=== PATIENT | female | born 1955 | race Hispanic/Latino ===

== ENCOUNTER 2017-08-21 01:07 | Inpatient (IN) | payer SELFPAY ==
[~2017-08-21] VITALS: Ht 147.3 cm; Wt 60.3 kg
[2017-08-21] MEDS ORDERED: ONDANSETRON HCL 4 MG/2 ML VIAL ONE (01:49)
[2017-08-21] MEDS ORDERED: SODIUM CHLORIDE 0.9% 1000ML 1,000 ML IV ONE ×2 (01:49→02:49)
[2017-08-21 02:19] LABS: BASOPHILS % (AUTO) 0.2 % (0.0-5.0); EOSINOPHILS % (AUTO) 0.1 % (0.0-8.0); HEMATOCRIT 46.4 % (36-48); LYMPHOCYTES % (AUTO) 9.8 % (21.0-51.0); MEAN CORPUSCULAR HEMOGLOBIN 28.9 pg (27.0-33.0); MEAN CORPUSCULAR VOLUME 87.5 fL (79-99); MONOCYTES % (AUTO) 5.1 % (3.0-13.0); NEUTROPHILS % (AUTO) 84.8 % (40.0-77.0); PLATELET COUNT (AUTO) 395 K/uL (130-400); RED CELL DISTRIBUTION WIDTH 12.7 % (11.0-15.5); WHITE BLOOD COUNT (AUTO) 21.4 K/uL (4.8-10.8)
[2017-08-21 02:20] LABS: APPEARANCE,URINE Clear (CLEAR); BILIRUBIN,URINE Negative (NEGATIVE); COLOR,URINE Dark Yellow (YELLOW); GLUCOSE, URINE (UA) Negative (NEGATIVE); KETONES,URINE Trace mg/dL (NEGATIVE); LEUKOCYTE ESTERASE ,URINE Negative (NEGATIVE); NITRATE,URINE Negative (NEGATIVE); OCCULT BLOOD,URINE Small (NEGATIVE); PROTEIN,URINE POS 2+ (NEGATIVE)
[2017-08-21 02:27] LABS: CREATININE 0.7 mg/dL (0.5-1.5); POTASSIUM 3.6 mmol/L (3.5-5.1)
[2017-08-21 02:32] LABS: ALBUMIN 3.1 g/dL (3.5-5.0); BILIRUBIN,TOTAL 0.4 mg/dL (0.2-1.0); TOTAL PROTEIN, SERUM 7.3 g/dL (6.0-8.3)
[2017-08-21 02:34] LABS: BACTERIA,URINE Rare /HPF (None Seen); MUCUS,URINE Many LPF (None Seen); SQUAMOUS EPITHELIAL CELL,UR Moderate /HPF (0-2)
[2017-08-21] MEDS ORDERED: ZOSYN 3.375GM+NS 50ML 50 ML IV ONE (02:49)
[2017-08-21] MEDS ORDERED: IOPAMIDOL-370 75 ML VIAL IV ONE (03:14)
[2017-08-21] MEDS ORDERED: ONDANSETRON HCL 4 MG/2 ML VIAL IVP PRN (06:30)
[2017-08-21] MEDS ORDERED: POTASSIUM CHLORIDE 20 MEQ ERTAB PO PRN (06:30)
[2017-08-21] MEDS ORDERED: LIDOCAINE HCL-MPF 1% 2ML VIAL IJ PRN (06:30)
[2017-08-21] MEDS ORDERED: POTASSIUM CHLORIDE 20MEQ/100ML 100 ML IV PRN (06:30)
[2017-08-21] MEDS ORDERED: POTASSIUM CHLORIDE 10% ELIXIR 20 MEQ/15 ML UDCUP PO PRN (06:30)
[2017-08-21] MEDS: LEVOFLOXACIN 500 MG/D5W 100 ML 100 ML IV SCH (06:30)
[2017-08-21] MEDS ORDERED: LEVOFLOXACIN 500 MG/D5W 100 ML 100 ML ONE (06:55)
[2017-08-21] MEDS ORDERED: METRONIDAZOLE 500 MG TABLET ONE (06:55)
[2017-08-21] MEDS: METRONIDAZOLE 500 MG TABLET PO SCH ×2 (09:00→17:07)
[2017-08-21] MEDS: ENOXAPARIN SODIUM 30 MG/0.3 ML SQ SCH (09:00)
[2017-08-21] MEDS ORDERED: MAGNESIUM 2GM PREMIX 50ML 50 ML IV PRN (09:30)
[2017-08-21] MEDS ORDERED: ENOXAPARIN SODIUM 30 MG/0.3 ML SQ ONE (09:47)
[2017-08-21 14:30] VITALS: BP 132/66
[2017-08-21] MEDS ORDERED: LISI10TA7 PO (14:46)
[2017-08-21 16:00] VITALS: BP 134/68
[2017-08-21 20:00] VITALS: BP 160/77
[2017-08-22] VITALS: BP 140/54
[2017-08-22] MEDS: METRONIDAZOLE 500 MG TABLET PO SCH ×2 (01:22→08:42)
[2017-08-22 04:00] VITALS: BP 126/80
[2017-08-22 04:52] LABS: HEMATOCRIT 38.8 % (36-48); MEAN CORPUSCULAR HEMOGLOBIN 29.9 pg (27.0-33.0); MEAN CORPUSCULAR HGB CONC 33.7 g/dL (32.0-36.0); MEAN CORPUSCULAR VOLUME 88.8 fL (79-99); PLATELET COUNT (AUTO) 329 K/uL (130-400); RED BLOOD CELL COUNT(AUTO) 4.37 MIL/uL (4.00-5.50); RED CELL DISTRIBUTION WIDTH 12.7 % (11.0-15.5); WHITE BLOOD COUNT (AUTO) 8.7 K/uL (4.8-10.8)
[2017-08-22 05:02] LABS: CREATININE 0.6 mg/dL (0.5-1.5); POTASSIUM 3.6 mmol/L (3.5-5.1)
[2017-08-22] MEDS: LEVOFLOXACIN 500 MG/D5W 100 ML 100 ML IV SCH (05:41)
[2017-08-22 08:00] VITALS: BP 153/76
[2017-08-22] MEDS: ENOXAPARIN SODIUM 30 MG/0.3 ML SQ SCH (08:42)
[2017-08-22 12:00] VITALS: BP 138/85
[2017-08-22 16:00] VITALS: BP 171/77
[2017-08-22] MEDS ORDERED: ACETAMINOPHEN 325 MG TAB ONE (16:13)
== END 2017-08-22 18:36 | disposition home or self-care (01) | DRG 392 ==
LOC: EDH 01:07 → EDHIP 01:08 → 3AH 14:25
PROVIDERS: ADMIT Internal Medicine Infectious Disease; ATTEND Internal Medicine Infectious Disease
DX: K52.9 Noninfective gastroenteritis and colitis, unspecified (principal); I10 Essential (primary) hypertension; D72.829 Elevated white blood cell count, unspecified; Z88.8 Allergy status to other drugs, medicaments and biological substances
CPT/HCPCS: 36415; 74177; 76856; 80048; 80053; 81001; 83605; 83690; 83735; 84484; 85025; 85027; 87040; 87046; 87205; 87324; 99291; J1650; J1956; J2405; J2543; J7030; Q9967

== ENCOUNTER 2017-11-24 23:13 | Inpatient (IN) | payer SELFPAY ==
[~2017-11-24] VITALS: Ht 147.3 cm; Wt 61.2 kg
[~2017-11-24 23:13] MED LIST: ATOR10TA69 PO
[2017-11-24] MEDS ORDERED: ONDANSETRON HCL 4 MG/2 ML VIAL ONE (23:53)
[2017-11-24] MEDS ORDERED: MORPHINE SULFATE 4 MG/1ML SYG ONE (23:53)
[2017-11-25 00:03] LABS: APPEARANCE,URINE Clear (CLEAR); BILIRUBIN,URINE Negative (NEGATIVE); COLOR,URINE Yellow (YELLOW); GLUCOSE, URINE (UA) Negative (NEGATIVE); KETONES,URINE 40 mg/dL (NEGATIVE); LEUKOCYTE ESTERASE ,URINE Negative (NEGATIVE); NITRATE,URINE Negative (NEGATIVE); OCCULT BLOOD,URINE Small (NEGATIVE); PROTEIN,URINE POS 2+ (NEGATIVE)
[2017-11-25 00:16] LABS: BACTERIA,URINE None Seen /HPF (None Seen); MUCUS,URINE Rare LPF (None Seen); RBC,URINE 0-1 /HPF (0-1); SQUAMOUS EPITHELIAL CELL,UR Rare /HPF (0-2); WBC,URINE None Seen /HPF (0-1)
[2017-11-25 00:21] LABS: BASOPHILS % (AUTO) 0.2 % (0.0-5.0); EOSINOPHILS % (AUTO) 0.1 % (0.0-8.0); HEMATOCRIT 48.4 % (36-48); LYMPHOCYTES % (AUTO) 9.7 % (21.0-51.0); MEAN CORPUSCULAR HEMOGLOBIN 29.1 pg (27.0-33.0); MEAN CORPUSCULAR HGB CONC 32.8 g/dL (32.0-36.0); MEAN CORPUSCULAR VOLUME 88.6 fL (79-99); MONOCYTES % (AUTO) 4.1 % (3.0-13.0); NEUTROPHILS % (AUTO) 85.9 % (40.0-77.0); PLATELET COUNT (AUTO) 323 K/uL (130-400); RED BLOOD CELL COUNT(AUTO) 5.47 MIL/uL (4.00-5.50); RED CELL DISTRIBUTION WIDTH 13.2 % (11.0-15.5)
[2017-11-25 00:42] LABS: ALBUMIN 3.4 g/dL (3.5-5.0); BILIRUBIN,TOTAL 0.3 mg/dL (0.2-1.0); CREATININE 0.6 mg/dL (0.5-1.5); TOTAL PROTEIN, SERUM 7.4 g/dL (6.0-8.3)
[2017-11-25] MEDS ORDERED: IOHEXOL-350 75 ML VIAL IV ONE (01:09)
[2017-11-25 01:16] LABS: POTASSIUM 3.5 mmol/L (3.5-5.1)
[2017-11-25] MEDS ORDERED: ZOSYN 3.375GM+NS 50ML 50 ML IV ONE ×2 (01:27→11:15)
[2017-11-25] MEDS ORDERED: SODIUM CHLORIDE 0.9% 50 ML IV ONE (01:28)
[2017-11-25] MEDS ORDERED: SODIUM CHLORIDE 0.9% 1000ML 1,000 ML IV ONE (04:10)
[2017-11-25 05:34] LABS: BASOPHILS % (AUTO) 0.3 % (0.0-5.0); HEMATOCRIT 40.7 % (36-48); LYMPHOCYTES % (AUTO) 7.7 % (21.0-51.0); MEAN CORPUSCULAR HEMOGLOBIN 29.8 pg (27.0-33.0); MEAN CORPUSCULAR HGB CONC 33.6 g/dL (32.0-36.0); MEAN CORPUSCULAR VOLUME 88.5 fL (79-99); MONOCYTES % (AUTO) 1.8 % (3.0-13.0); NEUTROPHILS % (AUTO) 90.2 % (40.0-77.0); PLATELET COUNT (AUTO) 326 K/uL (130-400); RED CELL DISTRIBUTION WIDTH 13.3 % (11.0-15.5); WHITE BLOOD COUNT (AUTO) 16.1 K/uL (4.8-10.8)
[2017-11-25 05:44] LABS: CREATININE 0.7 mg/dL (0.5-1.5); POTASSIUM 5.2 mmol/L (3.5-5.1)
[2017-11-25 05:50] LABS: ALBUMIN 2.8 g/dL (3.5-5.0); BILIRUBIN,TOTAL 0.5 mg/dL (0.2-1.0); TOTAL PROTEIN, SERUM 6.7 g/dL (6.0-8.3)
[2017-11-25 08:03] VITALS: BP 130/59
[2017-11-25] MEDS: PHARMACY COMMUNICATION MISC SCH ×2 (11:00→14:00)
[2017-11-25 11:01] VITALS: BP 124/50
[2017-11-25] MEDS: SODIUM CHLORIDE 0.9% 1000ML 1,000 ML IV SCH (11:06)
[2017-11-25] MEDS ORDERED: ACETAMINOPHEN 325 MG TAB PO PRN (11:15)
[2017-11-25] MEDS ORDERED: ONDANSETRON HCL 4 MG/2 ML VIAL IVP PRN (11:15)
[2017-11-25] MEDS ORDERED: MORPHINE SULFATE 4 MG/1ML SYG IVP PRN (11:15)
[2017-11-25] MEDS ORDERED: PNEUMOCOCCAL VACCINE POLYVALENT 0.5 ML/VIAL [PPV] IM ONE (12:00)
[2017-11-25 16:00] VITALS: BP 133/72
[2017-11-25 20:00] VITALS: BP 156/77
[2017-11-25] MEDS: ZOSYN 3.375GM+NS 50ML 50 ML IV SCH (20:36)
[2017-11-26] VITALS (7 sets, daily range): BP systolic 136–170; BP diastolic 53–85
[2017-11-26] MEDS: ZOSYN 3.375GM+NS 50ML 50 ML IV SCH ×3 (04:28→20:52)
[2017-11-26] MEDS: SODIUM CHLORIDE 0.9% 1000ML 1,000 ML IV SCH ×3 (08:21→12:17)
[2017-11-27 03:26] VITALS: BP 145/60
[2017-11-27 05:20] LABS: HEMATOCRIT 37.6 % (36-48); MEAN CORPUSCULAR HEMOGLOBIN 30.1 pg (27.0-33.0); MEAN CORPUSCULAR HGB CONC 33.9 g/dL (32.0-36.0); MEAN CORPUSCULAR VOLUME 88.6 fL (79-99); PLATELET COUNT (AUTO) 267 K/uL (130-400); RED BLOOD CELL COUNT(AUTO) 4.24 MIL/uL (4.00-5.50); RED CELL DISTRIBUTION WIDTH 12.7 % (11.0-15.5); WHITE BLOOD COUNT (AUTO) 7.2 K/uL (4.8-10.8)
[2017-11-27] MEDS: ZOSYN 3.375GM+NS 50ML 50 ML IV SCH ×2 (05:20→12:00)
[2017-11-27 05:27] LABS: CREATININE 0.6 mg/dL (0.5-1.5); POTASSIUM 3.4 mmol/L (3.5-5.1)
[2017-11-27 08:19] VITALS: BP 173/77
[2017-11-27] MEDS ORDERED: ENOXAPARIN SODIUM 40 MG/0.4 ML SYRINGE SQ SCH (09:00)
[2017-11-27] MEDS ORDERED: LEVO500T2 PO (12:16)
[2017-11-27 12:17] VITALS: BP 159/57
[2017-11-27] MEDS ORDERED: POTASSIUM CHLORIDE 20 MEQ ERTAB PO SCH (12:30)
== END 2017-11-27 15:53 | disposition home or self-care (01) | DRG 872 ==
LOC: EDH 23:13 → EDHIP 23:14 → 4BH 11-25 07:13
PROVIDERS: ADMIT Hospitalist; ATTEND Hospitalist
PROC: 3E0234Z Introduction of Serum, Toxoid and Vaccine into Muscle, Percutaneous Approach (ICD-10-PCS; principal; 2017-11-24)
DX: A41.9 Sepsis, unspecified organism (principal); K52.9 Noninfective gastroenteritis and colitis, unspecified; I10 Essential (primary) hypertension; E78.5 Hyperlipidemia, unspecified; E66.9 Obesity, unspecified; K76.0 Fatty (change of) liver, not elsewhere classified; Z68.28 Body mass index [BMI] 28.0-28.9, adult; Z88.8 Allergy status to other drugs, medicaments and biological substances; Z88.5 Allergy status to narcotic agent; Z91.010 Allergy to peanuts; Z82.5 Family history of asthma and other chronic lower respiratory diseases; Z83.3 Family history of diabetes mellitus; Z82.49 Family history of ischemic heart disease and other diseases of the circulatory system; Z23 Encounter for immunization
CPT/HCPCS: 36415; 74177; 80048; 80053; 81001; 82550; 83605; 83690; 84484; 85025; 85027; 87040; 87507; 90732; 93005; G0009; J1650; J2270; J2405; J2543; J7030; Q9967

== ENCOUNTER 2020-07-03 18:54 | Emergency (ER) | payer SELFPAY ==
[~2020-07-03 18:54] MED LIST changes: +LEVO500T2 PO
[2020-07-03] MEDS ORDERED: KETOROLAC TROMETHAMINE 30MG/ML ONE (19:38)
[2020-07-03] MEDS ORDERED: LIDOCAINE 5% TOPICAL PATCH TP ONE (19:38)
[2020-07-03] MEDS ORDERED: ORPHENADRINE CITRATE 30 MG/ML ML ONE (19:38)
[2020-07-03 19:59] LABS: APPEARANCE,URINE Clear (CLEAR); BILIRUBIN,URINE Negative (NEGATIVE); COLOR,URINE Yellow (YELLOW); GLUCOSE, URINE (UA) Negative (NEGATIVE); KETONES,URINE Negative (NEGATIVE); LEUKOCYTE ESTERASE ,URINE Trace (NEGATIVE); NITRATE,URINE Negative (NEGATIVE); OCCULT BLOOD,URINE Negative (NEGATIVE); PH,URINE 7.5 (5.0-8.0); PROTEIN,URINE Negative (NEGATIVE)
[2020-07-03 20:16] LABS: BACTERIA,URINE Rare /HPF (None Seen); RBC,URINE 0-1 /HPF (0-1); SQUAMOUS EPITHELIAL CELL,UR Few /HPF (0-2)
== END 2020-07-03 21:30 | disposition home or self-care (01) ==
LOC: EDH 18:54
DX: M62.830 Muscle spasm of back (principal); M54.5 Low back pain; I10 Essential (primary) hypertension; E78.5 Hyperlipidemia, unspecified; Z88.0 Allergy status to penicillin; Z87.891 Personal history of nicotine dependence; Z88.8 Allergy status to other drugs, medicaments and biological substances
CPT/HCPCS: 72131; 81001; 96374; 96375; 99284; J1885; J2360

== ENCOUNTER 2021-08-28 10:27 | Emergency (ER) | payer MEDICARE, OTHER ==
[~2021-08-28] VITALS: Ht 149.9 cm; Wt 62.6 kg
[2021-08-28 10:53] LABS: BASOPHILS % (AUTO) 0.3 % (0.0-5.0); LYMPHOCYTES % (AUTO) 7.2 % (21.0-51.0); MEAN CORPUSCULAR HEMOGLOBIN 29.2 pg (27.0-33.0); MEAN CORPUSCULAR HGB CONC 32.9 g/dL (32.0-36.0); MEAN CORPUSCULAR VOLUME 88.9 fL (79-99); MONOCYTES % (AUTO) 3.9 % (3.0-13.0); NEUTROPHILS % (AUTO) 87.9 % (40.0-77.0); PLATELET COUNT (AUTO) 411 K/uL (130-400); RED BLOOD CELL COUNT(AUTO) 5.06 MIL/uL (4.00-5.50); RED CELL DISTRIBUTION WIDTH 11.9 % (11.0-15.5); WHITE BLOOD COUNT (AUTO) 22.3 K/uL (4.8-10.8)
[2021-08-28 11:02] LABS: CREATININE 0.6 mg/dL (0.5-1.5); POTASSIUM 4.2 mmol/L (3.5-5.1)
[2021-08-28 11:08] LABS: ALBUMIN 3.6 g/dL (3.5-5.0); TOTAL PROTEIN, SERUM 8.1 g/dL (6.0-8.3)
[2021-08-28 11:09] LABS: APPEARANCE,URINE CLOUDY (CLEAR); BILIRUBIN,URINE SMALL (NEGATIVE); COLOR,URINE YELLOW (YELLOW); GLUCOSE, URINE (UA) NEGATIVE (NEGATIVE); KETONES,URINE 5 mg/dL (NEGATIVE); LEUKOCYTE ESTERASE ,URINE SMALL (NEGATIVE); NITRATE,URINE NEGATIVE (NEGATIVE); OCCULT BLOOD,URINE MODERATE (NEGATIVE); PROTEIN,URINE 100 mg/dL (NEGATIVE)
[2021-08-28 11:26] LABS: BACTERIA,URINE Rare /HPF (None Seen); MUCUS,URINE Few LPF (None Seen); SQUAMOUS EPITHELIAL CELL,UR Rare /HPF (0-2); WBC,URINE 51-100 /HPF (0-1)
[2021-08-28] MEDS ORDERED: 0.9%NACL 1000ML 1,000 ML IV ONE ×2 (14:00→16:04)
[2021-08-28] MEDS ORDERED: CEFTRIAXONE 2GM VIAL IVP ONE (14:00)
[2021-08-28] MEDS ORDERED: IOHEXOL 350 MG/ML 100ML INFUS..BTL IV ONE (14:49)
[2021-08-28] MEDS ORDERED: CEFTRIAXONE 1G VIAL ONE (16:04)
[2021-08-28] MEDS ORDERED: CEPH500B PO (16:47)
[2021-08-28 17:02] VITALS: BP 157/77
== END 2021-08-28 17:01 | disposition home or self-care (01) ==
LOC: EDH 10:27
DX: N39.0 Urinary tract infection, site not specified (principal); D26.9 Other benign neoplasm of uterus, unspecified; E78.00 Pure hypercholesterolemia, unspecified; E86.0 Dehydration; I10 Essential (primary) hypertension; Z87.440 Personal history of urinary (tract) infections; Z88.5 Allergy status to narcotic agent
CPT/HCPCS: 99285; 80053; 83690; 85025; 87077; 87088; 87186; 81001; 36415; 74177; 96374; 96361; J7030; J0696; Q9967

== ENCOUNTER 2022-04-05 10:48 | Inpatient (IN) | payer MEDICARE, OTHER ==
[~2022-04-05] VITALS: Ht 147.3 cm; Wt 57.4 kg
[2022-04-05] VITALS (37 sets, daily range): BP systolic 111–159; BP diastolic 46–89
[~2022-04-05 10:48] MED LIST changes: +CEPH500B PO
[2022-04-05] MEDS ORDERED: PROPOFOL 1000 MG/100 ML 100 ML IV SCH (11:00)
[2022-04-05] MEDS ORDERED: SUCCINYLCHOLINE 200MG/10ML SYR IVP SCH (11:00)
[2022-04-05] MEDS ORDERED: DiphenhydrAMINE HCL 50 MG/ML VIAL IV ONE (11:00)
[2022-04-05] MEDS ORDERED: ETOMIDATE 20MG VIAL IVP SCH (11:00)
[2022-04-05] MEDS ORDERED: SOLU-MEDROL 125MG VIAL IVP ONE (11:00)
[2022-04-05 11:08] LABS: BASOPHILS % (AUTO) 0.4 % (0.0-5.0); EOSINOPHILS % (AUTO) 1.2 % (0.0-8.0); HEMATOCRIT 45.7 % (36-48); LYMPHOCYTES % (AUTO) 35.8 % (21.0-51.0); MEAN CORPUSCULAR HEMOGLOBIN 28.9 pg (27.0-33.0); MEAN CORPUSCULAR HGB CONC 32.6 g/dL (32.0-36.0); MEAN CORPUSCULAR VOLUME 88.7 fL (79-99); MONOCYTES % (AUTO) 5.6 % (3.0-13.0); PLATELET COUNT (AUTO) 296 K/uL (130-400); RED BLOOD CELL COUNT(AUTO) 5.15 MIL/uL (4.00-5.50)
[2022-04-05 11:17] LABS: CREATININE 0.6 mg/dL (0.5-1.5)
[2022-04-05 11:21] LABS: ALBUMIN 3.7 g/dL (3.5-5.0); TOTAL PROTEIN, SERUM 8.5 g/dL (6.0-8.3)
[2022-04-05] MEDS ORDERED: LORAZEPAM 2 MG/ML 1 ML VIAL ONE (11:49)
[2022-04-05] MEDS ORDERED: POTASSIUM CHLORIDE 20MEQ/100ML 100 ML IV ONE (11:56)
[2022-04-05] MEDS ORDERED: LORAZEPAM 2 MG/ML 1 ML VIAL IVP ONE (12:00)
[2022-04-05] MEDS ORDERED: POTASSIUM CHLORIDE 20 MEQ/100 ML BAG IV SCH (12:00)
[2022-04-05 12:02] LABS: APPEARANCE,URINE CLEAR (CLEAR); BILIRUBIN,URINE NEGATIVE (NEGATIVE); COLOR,URINE LIGHT-YELLOW (YELLOW); GLUCOSE, URINE (UA) NEGATIVE (NEGATIVE); KETONES,URINE NEGATIVE (NEGATIVE); LEUKOCYTE ESTERASE ,URINE NEGATIVE Leu/uL (NEGATIVE); NITRATE,URINE NEGATIVE (NEGATIVE); PROTEIN,URINE 200 mg/dL (NEGATIVE); UROBILINOGEN,URINE 0.2 mg/dL (0.2-1.0)
[2022-04-05 12:07] LABS: BACTERIA,URINE RARE /HPF (None Seen); MUCUS,URINE RARE LPF (None Seen); OTHER CASTS, URINE 3 /LPF (None Seen); SQUAMOUS EPITHELIAL CELL,UR RARE /HPF (0-2)
[2022-04-05] MEDS ORDERED: ONDANSETRON 4MG INJ IVP PRN ×2 (13:00→15:00)
[2022-04-05] MEDS ORDERED: ACETAMINOPHEN 325 MG SUPPOSITORY RC PRN (13:00)
[2022-04-05] MEDS ORDERED: FENTANYL 2500MCG+NS 250ML IV.SOLN IV SCH (13:00)
[2022-04-05] MEDS ORDERED: LIDOCAINE HCL-MPF 1% 2ML VIAL IV PRN (13:00)
[2022-04-05] MEDS ORDERED: POTASSIUM CHLORIDE 20MEQ/100ML 100 ML IV PRN (13:00)
[2022-04-05] MEDS ORDERED: FENTANYL 2500MCG+NS 250ML 250 ML IV SCH (13:30)
[2022-04-05] MEDS: LACTATED RINGERS 1000ML 1,000 ML IV SCH (14:52)
[2022-04-05] MEDS: CHLORHEXIDINE GLUCONATE 473 ML MOUTHWASH MM SCH ×2 (14:52→20:12)
[2022-04-05] MEDS: DiphenhydrAMINE HCL 50 MG/ML VIAL IV SCH ×2 (14:59→23:51)
[2022-04-05] MEDS: SOLU-MEDROL 40MG VIAL IVP SCH ×2 (14:59→23:51)
[2022-04-05] MEDS ORDERED: HYDROCODONE/ACETAMINOPHEN 5/325 MG TAB PO PRN ×2 (15:00)
[2022-04-05] MEDS ORDERED: DOCUSATE SODIUM 100 MG CAP PO PRN (15:00)
[2022-04-05] MEDS ORDERED: ACETAMINOPHEN 325 MG TAB PO PRN (15:00)
[2022-04-05] MEDS ORDERED: LABETALOL 20MG SYG IV PRN (15:00)
[2022-04-05] MEDS ORDERED: ALBUTEROL 0.083% 2.5 MG/3 ML INH IH PRN (15:00)
[2022-04-05] MEDS ORDERED: TEMAZEPAM 15 MG CAPSULE PO PRN (15:00)
[2022-04-05] MEDS ORDERED: HYDRALAZINE 20MG/ML VIAL IV PRN (15:00)
[2022-04-05] MEDS ORDERED: LACTULOSE 20 GM/30 ML UDCUP PO PRN (15:00)
[2022-04-05 15:10] LABS: ABG BASE EXCESS -3.1 mmol/L (-2.0-3.0); ABG HCO3 21.6 mmol/L (21.0-28.0); ABG OXYGEN SATURATION 99.1 % (95.0-99.0); ABG PCO2 38 mmHg (32-45)
[2022-04-05] MEDS: FAMOTIDINE 20MG VIAL IV SCH (20:11)
[2022-04-06] VITALS (59 sets, daily range): BP systolic 118–171; BP diastolic 44–138
[2022-04-06] MEDS: LACTATED RINGERS 1000ML 1,000 ML IV SCH ×2 (00:30→10:41)
[2022-04-06] MEDS: CHLORHEXIDINE GLUCONATE 473 ML MOUTHWASH MM SCH ×4 (03:18→20:26)
[2022-04-06 04:01] LABS: BASOPHILS % (AUTO) 0.1 % (0.0-5.0); HEMATOCRIT 41.6 % (36-48); LYMPHOCYTES % (AUTO) 10.2 % (21.0-51.0); MEAN CORPUSCULAR HEMOGLOBIN 29.3 pg (27.0-33.0); MEAN CORPUSCULAR HGB CONC 32.9 g/dL (32.0-36.0); MEAN CORPUSCULAR VOLUME 88.9 fL (79-99); MONOCYTES % (AUTO) 1.5 % (3.0-13.0); NEUTROPHILS % (AUTO) 87.8 % (40.0-77.0); PLATELET COUNT (AUTO) 274 K/uL (130-400); RED BLOOD CELL COUNT(AUTO) 4.68 MIL/uL (4.00-5.50); RED CELL DISTRIBUTION WIDTH 12.2 % (11.0-15.5); WHITE BLOOD COUNT (AUTO) 12.4 K/uL (4.8-10.8)
[2022-04-06 04:29] LABS: ALBUMIN 3.1 g/dL (3.5-5.0); CREATININE 0.6 mg/dL (0.5-1.5); MAGNESIUM 1.7 mg/dL (1.80-2.40); POTASSIUM 4.1 mmol/L (3.5-5.1); THYROID STIMULATING HORMONE 0.46 uIU/mL (0.36-3.74); TOTAL PROTEIN, SERUM 7.5 g/dL (6.0-8.3)
[2022-04-06 05:23] LABS: ERYTHROCYTE SEDIMENTATION RATE 17 MM/HR (0-30)
[2022-04-06] MEDS: DiphenhydrAMINE HCL 50 MG/ML VIAL IV SCH ×3 (06:10→22:58)
[2022-04-06] MEDS: SOLU-MEDROL 40MG VIAL IVP SCH ×3 (06:10→22:58)
[2022-04-06] MEDS ORDERED: MAGNESIUM 2GM PREMIX 50ML 50 ML IV SCH (06:30)
[2022-04-06] MEDS: FAMOTIDINE 20MG VIAL IV SCH ×2 (09:43→20:25)
[2022-04-06] MEDS: CEFTRIAXONE 2GM VIAL IVP SCH ×2 (10:41→20:25)
[2022-04-06 12:16] LABS: ABG BASE EXCESS 2.3 mmol/L (-2.0-3.0); ABG HCO3 28.5 mmol/L (21.0-28.0); ABG OXYGEN SATURATION 95.6 % (95.0-99.0); ABG PCO2 51 mmHg (32-45)
[2022-04-06] MEDS ORDERED: PHARMACY COMMUNICATION MISC SCH (12:30)
[2022-04-06] MEDS ORDERED: RACEPINEPHRINE HCL 2.25% 0.5 ML NEB SOLN NEB SCH (12:30)
[2022-04-06] MEDS ORDERED: [UNRECOGNIZED DRUG - OTHER] NEB SCH ×2 (13:00)
[2022-04-06] MEDS ORDERED: EPINEPHRINE NEB SCH ×2 (13:00)
[2022-04-06] MEDS ORDERED: EPINEPHRINE PF 1MG (1:1,000) 1 MG/ML AMP IH SCH (13:00)
[2022-04-06 14:43] LABS: CHOLESTEROL 230 mg/dL (<200); HDL CHOLESTEROL 64 mg/dL (35-85); LDL DIRECT 154 mg/dL (0-99); TRIGLYCERIDES 62 mg/dL (30-200)
[2022-04-07] VITALS (14 sets, daily range): BP systolic 115–142; BP diastolic 49–75
[2022-04-07 04:11] LABS: HEMATOCRIT 37.9 % (36-48); MEAN CORPUSCULAR HEMOGLOBIN 29.3 pg (27.0-33.0); MEAN CORPUSCULAR HGB CONC 32.2 g/dL (32.0-36.0); MEAN CORPUSCULAR VOLUME 90.9 fL (79-99); RED BLOOD CELL COUNT(AUTO) 4.17 MIL/uL (4.00-5.50); RED CELL DISTRIBUTION WIDTH 12.4 % (11.0-15.5); WHITE BLOOD COUNT (AUTO) 16.8 K/uL (4.8-10.8)
[2022-04-07 04:27] LABS: ALBUMIN 2.8 g/dL (3.5-5.0); CREATININE 0.5 mg/dL (0.5-1.5); MAGNESIUM 2.3 mg/dL (1.80-2.40); POTASSIUM 3.9 mmol/L (3.5-5.1)
[2022-04-07] MEDS: DiphenhydrAMINE HCL 50 MG/ML VIAL IV SCH ×3 (06:26→23:00)
[2022-04-07] MEDS: SOLU-MEDROL 40MG VIAL IVP SCH ×3 (06:26→20:57)
[2022-04-07] MEDS: CHLORHEXIDINE GLUCONATE 473 ML MOUTHWASH MM SCH ×3 (08:30→21:38)
[2022-04-07] MEDS: FAMOTIDINE 20MG VIAL IV SCH ×2 (08:30→20:58)
[2022-04-07] MEDS: CEFTRIAXONE 2GM VIAL IVP SCH ×2 (08:30→20:58)
[2022-04-08 00:09] VITALS: BP 151/68
[2022-04-08 04:00] VITALS: BP 151/78
[2022-04-08 05:14] LABS: HEMATOCRIT 40.4 % (36-48); MEAN CORPUSCULAR HEMOGLOBIN 28.9 pg (27.0-33.0); MEAN CORPUSCULAR HGB CONC 32.7 g/dL (32.0-36.0); MEAN CORPUSCULAR VOLUME 88.6 fL (79-99); RED BLOOD CELL COUNT(AUTO) 4.56 MIL/uL (4.00-5.50); RED CELL DISTRIBUTION WIDTH 12.4 % (11.0-15.5)
[2022-04-08 05:27] LABS: ALBUMIN 3.2 g/dL (3.5-5.0); CREATININE 0.7 mg/dL (0.5-1.5); MAGNESIUM 2.4 mg/dL (1.80-2.40); POTASSIUM 3.4 mmol/L (3.5-5.1); TOTAL PROTEIN, SERUM 7.5 g/dL (6.0-8.3)
[2022-04-08] MEDS: CHLORHEXIDINE GLUCONATE 473 ML MOUTHWASH MM SCH ×2 (05:30→09:20)
[2022-04-08] MEDS: DiphenhydrAMINE HCL 50 MG/ML VIAL IV SCH (07:00)
[2022-04-08 08:00] VITALS: BP 142/86
[2022-04-08] MEDS ORDERED: EPIN0.3P3 IJ (08:21)
[2022-04-08] MEDS ORDERED: LORA10TA7 PO (08:22)
[2022-04-08] MEDS: FAMOTIDINE 20MG VIAL IV SCH (09:16)
[2022-04-08] MEDS: CEFTRIAXONE 2GM VIAL IVP SCH (09:16)
[2022-04-08] MEDS: SOLU-MEDROL 40MG VIAL IVP SCH (09:16)
== END 2022-04-08 12:00 | disposition home or self-care (01) | DRG 208 ==
LOC: EDH 10:48 → EDHIP 12:47 → 2BH 13:43 → 4CH 04-07 10:57
PROVIDERS: ADMIT Hospitalist; ATTEND Hospitalist
PROC: 5A1945Z Respiratory Ventilation, 24-96 Consecutive Hours (ICD-10-PCS; principal; 2022-04-05)
PROC: 0BH17EZ Insertion of Endotracheal Airway into Trachea, Via Natural or Artificial Opening (ICD-10-PCS; 2022-04-05)
DX: J96.01 Acute respiratory failure with hypoxia (principal); T78.3XXA Angioneurotic edema, initial encounter; E78.00 Pure hypercholesterolemia, unspecified; I10 Essential (primary) hypertension; E87.6 Hypokalemia; I16.0 Hypertensive urgency; Z20.822 Contact with and (suspected) exposure to COVID-19; E11.65 Type 2 diabetes mellitus with hyperglycemia; Z83.3 Family history of diabetes mellitus; Z91.010 Allergy to peanuts; Z82.49 Family history of ischemic heart disease and other diseases of the circulatory system
CPT/HCPCS: 31500; 36415; 36600; 71045; 74018; 80053; 80061; 81001; 82435; 82803; 82947; 82948; 83605; 83735; 84100; 84132; 84295; 84443; 84484; 85018; 85025; 85027; 85651; 86161; 87426; 87804; 93005; 94002; 94003; 94640; 96374; 96375; 99291; G0378; J0171; J0330; J0696; J1200; J2060; J2704; J2920; J2930; J3480; J3490

== ENCOUNTER 2022-04-19 12:34 | Emergency (ER) | payer MEDICARE, OTHER ==
[~2022-04-19] VITALS: Ht 152.4 cm; Wt 47.6 kg
[~2022-04-19 12:34] MED LIST changes: +EPIN0.3P3 IJ; +LORA10TA7 PO
[2022-04-19 13:20] LABS: BASOPHILS % (AUTO) 0.3 % (0.0-5.0); EOSINOPHILS % (AUTO) 0.4 % (0.0-8.0); LYMPHOCYTES % (AUTO) 19.2 % (21.0-51.0); MEAN CORPUSCULAR HEMOGLOBIN 28.9 pg (27.0-33.0); MEAN CORPUSCULAR HGB CONC 32.3 g/dL (32.0-36.0); MEAN CORPUSCULAR VOLUME 89.5 fL (79-99); MONOCYTES % (AUTO) 6.2 % (3.0-13.0); NEUTROPHILS % (AUTO) 73.5 % (40.0-77.0); PLATELET COUNT (AUTO) 246 K/uL (130-400); RED BLOOD CELL COUNT(AUTO) 4.47 MIL/uL (4.00-5.50); RED CELL DISTRIBUTION WIDTH 12.6 % (11.0-15.5); WHITE BLOOD COUNT (AUTO) 7.9 K/uL (4.8-10.8)
[2022-04-19 13:43] LABS: CREATININE 0.5 mg/dL (0.5-1.5); POTASSIUM 3.6 mmol/L (3.5-5.1)
[2022-04-19 13:47] LABS: ALBUMIN 3.4 g/dL (3.5-5.0); TOTAL PROTEIN, SERUM 7.5 g/dL (6.0-8.3)
[2022-04-19 16:14] VITALS: BP 144/59
== END 2022-04-19 16:18 | disposition home or self-care (01) ==
LOC: EDH 12:34
DX: I49.9 Cardiac arrhythmia, unspecified (principal); R05.9 Cough, unspecified; E78.00 Pure hypercholesterolemia, unspecified; I10 Essential (primary) hypertension; Z88.5 Allergy status to narcotic agent
CPT/HCPCS: 36415; 71045; 80053; 83735; 84484; 85025; 93005